=== PATIENT | male | born 1940 | race Caucasian/White ===

== ENCOUNTER 2023-10-08 10:43 | Inpatient (IN) | payer OTHER, BC, MEDICARE ==
[2023-10-08 12:03] LABS: HEMATOCRIT 42.9 % (35.4-49); HEMOGLOBIN 13.7 G/dL (11.7-16.9); MCH 28.1 pg (25.7-33.7); MEAN CELL VOLUME 87.8 fl (80-96); MEAN PLT VOLUME 10.9 fl (7.5-11.1); PLATELET COUNT 274.1 10^3/uL (134-434); RBC 4.89 10^6/uL (4.00-5.60); RDW 16.2 % (11.9-15.9); WHITE BLOOD COUNT 10.9 10^3/uL (4.0-10.8)
[2023-10-08 12:08] LABS: PLATELET ESTIMATE ADEQUATE
[2023-10-08 12:13] LABS: ALBUMIN 3.7 g/dl (3.4-5.0); ALK PHOS 73 U/L (45-117); ANION GAP 22 mmol/L (4-13); BILIRUBIN,TOTAL 0.5 mg/dl (0.2-1); CALCIUM 9.2 mg/dl (8.5-10.1); CHLORIDE 109 mmol/L (98-107); CO2 18 mmol/L (21-32); GLUCOSE,RANDOM 201 mg/dl (74-106); MAGNESIUM 2.2 mg/dL (1.8-2.4); POTASSIUM 5.1 mmol/L (3.5-5.1); SGOT/AST 16 U/L (15-37); SGPT/ALT 13 U/L (7-52); SODIUM 149 mmol/L (136-145)
[2023-10-08 12:15] VITALS: BMI 28.2
[2023-10-08 12:20] LABS: CREATININE 7.5 mg/dl (0.6-1.3)
[2023-10-08 15:45] LABS: ANION GAP 21 mmol/L (4-13); CALCIUM 8.7 mg/dl (8.5-10.1); CHLORIDE 111 mmol/L (98-107); CO2 17 mmol/L (21-32); CREATININE 7.2 mg/dl (0.6-1.3); GLUCOSE,RANDOM 209 mg/dl (74-106); POTASSIUM 5.2 mmol/L (3.5-5.1); SODIUM 149 mmol/L (136-145)
[2023-10-08] MEDS ORDERED: ACETAMINOPHEN 325 MG TABLET (FP) PO PRN (20:16)
[2023-10-09] MEDS ORDERED: MAGNESIUM HYDROX 2400MG/30ML ORAL SUSPENSION 30 ML CUP PO PRN (02:12)
[2023-10-09] MEDS ORDERED: ALBUTEROL SO4 HFA INHALER IH PRN (02:17)
[2023-10-09] MEDS ORDERED: guaiFENesin/D-METHORPHAN HB 10 ML UNIT-DOSE CUPS PO PRN (02:17)
[2023-10-09] MEDS: DEXTROSE 5%-0.45% SALINE 1,000 ML IV SCH ×2 (06:49→20:06)
[2023-10-09 09:48] LABS: ACTIVATED PTT 23.7 SECONDS (25.2-36.5); INR 1.1 (0.83-1.09); PROTHROMBIN TIME (PATIENT) 12.7 SEC (9.7-13.0)
[2023-10-09 09:58] LABS: ANION GAP 22 mmol/L (4-13); CALCIUM 8.6 mg/dl (8.5-10.1); CHLORIDE 114 mmol/L (98-107); CO2 16 mmol/L (21-32); CREATININE 6.6 mg/dl (0.6-1.3); GLUCOSE,RANDOM 327 mg/dl (74-106); POTASSIUM 5.1 mmol/L (3.5-5.1); SODIUM 152 mmol/L (136-145)
[2023-10-09 10:54] LABS: HEMATOCRIT 35.7 % (35.4-49); HEMOGLOBIN 11.5 GM/dL (11.7-16.9); MCHC 32.3 g/dl (32.0-35.9); MEAN CELL VOLUME 86.6 fl (80-96); MEAN PLT VOLUME 10.2 fl (7.5-11.1); PLATELET COUNT 278 10^3/uL (134-434); RBC 4.12 M/mm3 (4.00-5.60); RDW 16.9 % (11.9-15.9); WHITE BLOOD COUNT 8.3 K/mm3 (4.0-10.0)
[2023-10-09] MEDS: metoPROLOL SUCCINATE 25 MG TAB.SR.24H (FP) PO SCH (11:32)
[2023-10-09] MEDS: ZINC SULFATE 220 MG CAPSULE (FP) PO SCH (11:32)
[2023-10-09] MEDS: PANTOPRAZOLE 20 MG TABLET PO SCH (11:32)
[2023-10-09] MEDS: ASPIRIN COATED 81 MG TABLET.EC PO SCH (11:33)
[2023-10-09] MEDS: ASCORBIC ACID 500 MG TABLET (FP) PO SCH (11:33)
[2023-10-09 12:04] LABS: ANISOCYTOSIS 2+; MACROCYTOSIS 0
[2023-10-09] MEDS ORDERED: REMDESIVIR 200 MG in SODIUM CHLORIDE 250 ML IVPB ONE (14:00)
[2023-10-09] MEDS: INSULIN SLIDING SCALE (NOVOLOG) 1 VIAL SQ SCH ×3 (14:12→22:03)
[2023-10-09] MEDS ORDERED: TAMSULOSIN HCL 0.4 MG CAP PO ONE (15:02)
[2023-10-09] MEDS: QUEtiapine FUMARATE 25 MG TABLET PO SCH (22:03)
[2023-10-09] MEDS: INSULIN (LEVEMIR) 100 UNITS/ML UNITS SQ SCH (22:04)
[2023-10-10] MEDS: INSULIN SLIDING SCALE (NOVOLOG) 1 VIAL SQ SCH ×4 (06:46→21:52)
[2023-10-10 10:10] LABS: HEMATOCRIT 39.1 % (35.4-49); HEMOGLOBIN 12.9 G/dL (11.7-16.9); MEAN CELL VOLUME 87.8 fl (80-96); MEAN PLT VOLUME 9.7 fl (7.5-11.1); PLATELET COUNT 248.7 10^3/uL (134-434); RBC 4.45 10^6/uL (4.00-5.60); RDW 16.8 % (11.9-15.9); WHITE BLOOD COUNT 8.6 10^3/uL (4.0-10.8)
[2023-10-10 10:13] LABS: ALBUMIN 3.3 g/dl (3.4-5.0); ALK PHOS 61 U/L (45-117); ANION GAP 13 mmol/L (4-13); BILIRUBIN,TOTAL 0.3 mg/dl (0.2-1); CALCIUM 8.9 mg/dl (8.5-10.1); CHLORIDE 122 mmol/L (98-107); CO2 23 mmol/L (21-32); CREATININE 4.9 mg/dl (0.6-1.3); GLUCOSE,RANDOM 151 mg/dl (74-106); POTASSIUM 4.1 mmol/L (3.5-5.1); SGOT/AST 24 U/L (15-37); SGPT/ALT 13 U/L (7-52); SODIUM 158 mmol/L (136-145); TOT PROT 6.1 g/dl (6.4-8.2)
[2023-10-10] MEDS: ZINC SULFATE 220 MG CAPSULE (FP) PO SCH (10:29)
[2023-10-10] MEDS: ASCORBIC ACID 500 MG TABLET (FP) PO SCH (10:29)
[2023-10-10] MEDS: ASPIRIN COATED 81 MG TABLET.EC PO SCH (10:29)
[2023-10-10] MEDS: metoPROLOL SUCCINATE 25 MG TAB.SR.24H (FP) PO SCH (10:29)
[2023-10-10] MEDS: PANTOPRAZOLE 20 MG TABLET PO SCH (10:29)
[2023-10-10] MEDS ORDERED: SODIUM CHLORIDE 0.45% 1,000 ML IV SCH (12:30)
[2023-10-10 13:40] LABS: PLATELET ESTIMATE ADEQUATE
[2023-10-10] MEDS: REMDESIVIR 100 MG in SODIUM CHLORIDE 250 ML IVPB SCH (14:16)
[2023-10-10] MEDS: QUEtiapine FUMARATE 25 MG TABLET PO SCH (21:25)
[2023-10-10] MEDS: INSULIN (LEVEMIR) 100 UNITS/ML UNITS SQ SCH (21:25)
[2023-10-11] MEDS ORDERED: INSULIN (NOVOLOG) ASPART 100 UNITS/ML 10ML VIAL ONE (05:44)
[2023-10-11] MEDS: INSULIN SLIDING SCALE (NOVOLOG) 1 VIAL SQ SCH ×4 (06:24→22:34)
[2023-10-11 08:04] LABS: BASO % 0.5 % (0-2.0); EOS % 1.1 % (0-4.5); HEMATOCRIT 37.9 % (35.4-49); HEMOGLOBIN 12.2 GM/dL (11.7-16.9); LYMPH % 18.3 % (8-40); MCHC 32.2 g/dl (32.0-35.9); MEAN CELL VOLUME 86.9 fl (80-96); MEAN PLT VOLUME 9.7 fl (7.5-11.1); MONO % 14.8 % (3.8-10.2); NEUT % 65.3 % (42.8-82.8); PLATELET COUNT 257 10^3/uL (134-434); RBC 4.36 M/mm3 (4.00-5.60); RDW 16.4 % (11.9-15.9); WHITE BLOOD COUNT 9.4 K/mm3 (4.0-10.0)
[2023-10-11 08:55] LABS: ALBUMIN 2.3 g/dl (3.4-5.0); BILIRUBIN,TOTAL 0.4 mg/dL (0.2-1); BLOOD UREA NITROGEN 103.9 mg/dL (7-18); CALCIUM 8.4 mg/dL (8.5-10.1); CREATININE 3.4 mg/dL (0.55-1.3); POTASSIUM 4.2 mmol/L (3.5-5.1); TOT PROT 6.3 g/dl (6.4-8.2)
[2023-10-11] MEDS: ASCORBIC ACID 500 MG TABLET (FP) PO SCH (11:00)
[2023-10-11] MEDS: ZINC SULFATE 220 MG CAPSULE (FP) PO SCH (11:00)
[2023-10-11] MEDS: PANTOPRAZOLE 20 MG TABLET PO SCH (11:00)
[2023-10-11] MEDS: ASPIRIN COATED 81 MG TABLET.EC PO SCH (11:00)
[2023-10-11] MEDS: metoPROLOL SUCCINATE 25 MG TAB.SR.24H (FP) PO SCH (11:01)
[2023-10-11] MEDS ORDERED: DEXTROSE 5%-WATER - 1,000 ML IV SCH (12:15)
[2023-10-11] MEDS ORDERED: metoPROLOL SUCCINATE 25 MG TAB.SR.24H (FP) PO ONE (15:15)
[2023-10-11] MEDS: REMDESIVIR 100 MG in SODIUM CHLORIDE 250 ML IVPB SCH (17:23)
[2023-10-11] MEDS: QUEtiapine FUMARATE 25 MG TABLET PO SCH (22:29)
[2023-10-11] MEDS: INSULIN (LEVEMIR) 100 UNITS/ML UNITS SQ SCH (22:31)
[2023-10-12] MEDS: INSULIN SLIDING SCALE (NOVOLOG) 1 VIAL SQ SCH ×4 (06:46→21:30)
[2023-10-12 06:58] LABS: HEMATOCRIT 36.3 % (35.4-49); HEMOGLOBIN 11.7 GM/dL (11.7-16.9); MCH 28.1 pg (25.7-33.7); MCHC 32.3 g/dl (32.0-35.9); MEAN CELL VOLUME 87.1 fl (80-96); MEAN PLT VOLUME 9.9 fl (7.5-11.1); PLATELET COUNT 246 10^3/uL (134-434); RBC 4.17 M/mm3 (4.00-5.60); RDW 16.2 % (11.9-15.9); WHITE BLOOD COUNT 9.3 K/mm3 (4.0-10.0)
[2023-10-12 07:17] LABS: CALCIUM 8.1 mg/dL (8.5-10.1)
[2023-10-12 07:18] LABS: ALBUMIN 2.2 g/dl (3.4-5.0)
[2023-10-12 07:21] LABS: CREATININE 2.5 mg/dL (0.55-1.3)
[2023-10-12 07:22] LABS: TOT PROT 6.1 g/dl (6.4-8.2)
[2023-10-12 07:23] LABS: BILIRUBIN,TOTAL 0.5 mg/dL (0.2-1)
[2023-10-12 07:25] LABS: BLOOD UREA NITROGEN 74.3 mg/dL (7-18)
[2023-10-12] MEDS: metoPROLOL SUCCINATE 25 MG TAB.SR.24H (FP) PO SCH (10:06)
[2023-10-12] MEDS: PANTOPRAZOLE 20 MG TABLET PO SCH (10:06)
[2023-10-12] MEDS: ASCORBIC ACID 500 MG TABLET (FP) PO SCH (10:06)
[2023-10-12] MEDS: ZINC SULFATE 220 MG CAPSULE (FP) PO SCH (10:06)
[2023-10-12] MEDS: ASPIRIN COATED 81 MG TABLET.EC PO SCH (10:06)
[2023-10-12] MEDS ORDERED: metoPROLOL SUCCINATE 25 MG TAB.SR.24H (FP) PO ONE (14:55)
[2023-10-12] MEDS: REMDESIVIR 100 MG in SODIUM CHLORIDE 250 ML IVPB SCH (15:28)
[2023-10-12] MEDS: DEXTROSE 5%-WATER - 1,000 ML IV SCH (15:29)
[2023-10-12] MEDS ORDERED: INSULIN (NOVOLOG) ASPART 100 UNITS/ML 10ML VIAL ONE ×2 (17:32→21:25)
[2023-10-12] MEDS ORDERED: ACETAMINOPHEN 1000 MG/100 ML BAG IVPB ONE (18:01)
[2023-10-12] MEDS: INSULIN (LEVEMIR) 100 UNITS/ML UNITS SQ SCH (21:30)
[2023-10-12] MEDS: QUEtiapine FUMARATE 25 MG TABLET PO SCH (21:31)
[2023-10-13] MEDS: DEXTROSE 5%-WATER - 1,000 ML IV SCH ×2 (02:11→12:14)
[2023-10-13] MEDS: metoPROLOL SUCCINATE 25 MG TAB.SR.24H (FP) PO SCH ×2 (06:26→09:44)
[2023-10-13] MEDS: INSULIN SLIDING SCALE (NOVOLOG) 1 VIAL SQ SCH ×4 (06:27→21:58)
[2023-10-13 07:35] LABS: HEMATOCRIT 36.3 % (35.4-49); HEMOGLOBIN 11.6 GM/dL (11.7-16.9); MCH 28.2 pg (25.7-33.7); MEAN CELL VOLUME 88.1 fl (80-96); MEAN PLT VOLUME 10.1 fl (7.5-11.1); PLATELET COUNT 219 10^3/uL (134-434); RBC 4.12 M/mm3 (4.00-5.60); WHITE BLOOD COUNT 10.1 K/mm3 (4.0-10.0)
[2023-10-13 07:53] LABS: POTASSIUM 3.8 mmol/L (3.5-5.1)
[2023-10-13 08:02] LABS: ALBUMIN 2.2 g/dl (3.4-5.0); BLOOD UREA NITROGEN 56.4 mg/dL (7-18); CALCIUM 7.9 mg/dL (8.5-10.1)
[2023-10-13 08:05] LABS: CREATININE 2.2 mg/dL (0.55-1.3)
[2023-10-13 08:07] LABS: BILIRUBIN,TOTAL 0.5 mg/dL (0.2-1); TOT PROT 6.1 g/dl (6.4-8.2)
[2023-10-13] MEDS: ZINC SULFATE 220 MG CAPSULE (FP) PO SCH (09:43)
[2023-10-13] MEDS: PANTOPRAZOLE 20 MG TABLET PO SCH (09:43)
[2023-10-13] MEDS: ASCORBIC ACID 500 MG TABLET (FP) PO SCH (09:43)
[2023-10-13] MEDS: ASPIRIN COATED 81 MG TABLET.EC PO SCH (09:44)
[2023-10-13] MEDS: REMDESIVIR 100 MG in SODIUM CHLORIDE 250 ML IVPB SCH (13:31)
[2023-10-13] MEDS: QUEtiapine FUMARATE 25 MG TABLET PO SCH (21:53)
[2023-10-13] MEDS: INSULIN (LEVEMIR) 100 UNITS/ML UNITS SQ SCH (21:55)
[2023-10-14] MEDS: DEXTROSE 5%-WATER - 1,000 ML IV SCH ×2 (02:10→14:26)
[2023-10-14] MEDS: INSULIN SLIDING SCALE (NOVOLOG) 1 VIAL SQ SCH ×4 (05:59→22:40)
[2023-10-14 06:58] LABS: BASO % 0.7 % (0-2.0); EOS % 2.4 % (0-4.5); HEMATOCRIT 35.1 % (35.4-49); HEMOGLOBIN 11.1 GM/dL (11.7-16.9); MCH 27.6 pg (25.7-33.7); MCHC 31.5 g/dl (32.0-35.9); MEAN CELL VOLUME 87.5 fl (80-96); MONO % 7.5 % (3.8-10.2); NEUT % 62.4 % (42.8-82.8); PLATELET COUNT 207 10^3/uL (134-434); RBC 4.01 M/mm3 (4.00-5.60); RDW 16.3 % (11.9-15.9); WHITE BLOOD COUNT 11.4 K/mm3 (4.0-10.0)
[2023-10-14 07:20] LABS: POTASSIUM 3.6 mmol/L (3.5-5.1)
[2023-10-14 07:32] LABS: BLOOD UREA NITROGEN 44.5 mg/dL (7-18); CALCIUM 7.7 mg/dL (8.5-10.1)
[2023-10-14 07:35] LABS: CREATININE 1.7 mg/dL (0.55-1.3)
[2023-10-14 07:39] LABS: BILIRUBIN,TOTAL 0.4 mg/dL (0.2-1); TOT PROT 5.7 g/dl (6.4-8.2)
[2023-10-14] MEDS: ASCORBIC ACID 500 MG TABLET (FP) PO SCH (09:20)
[2023-10-14] MEDS: ASPIRIN COATED 81 MG TABLET.EC PO SCH (09:20)
[2023-10-14] MEDS: PANTOPRAZOLE 20 MG TABLET PO SCH (09:20)
[2023-10-14] MEDS: ZINC SULFATE 220 MG CAPSULE (FP) PO SCH (09:21)
[2023-10-14] MEDS: metoPROLOL SUCCINATE 25 MG TAB.SR.24H (FP) PO SCH (09:23)
[2023-10-14] MEDS: FINASTERIDE 5 MG TABLET (FP) PO SCH (10:31)
[2023-10-14] MEDS ORDERED: INSULIN (NOVOLOG) ASPART 100 UNITS/ML 10ML VIAL ONE (14:23)
[2023-10-14] MEDS: QUEtiapine FUMARATE 25 MG TABLET PO SCH (22:29)
[2023-10-14] MEDS: INSULIN (LEVEMIR) 100 UNITS/ML UNITS SQ SCH (22:29)
[2023-10-14] MEDS ORDERED: ACETAMINOPHEN 325 MG TABLET (FP) PO PRN (22:51)
[2023-10-14] MEDS ORDERED: INSULIN (NOVOLOG) ASPART 100 UNITS/ML 10ML VIAL SQ ONE ×2 (23:35)
[2023-10-15 00:05] LABS: EPI CELLS >36 /uL (0-25.1); HYALINE CASTS 26 /uL (0-3.1); URINE APPEARANCE TURBID; URINE BILIRUBIN NEGATIVE (NEGATIVE); URINE COLOR YELLOW; URINE GLUCOSE (UA) 3+ (NEGATIVE); URINE KETONE NEGATIVE (NEGATIVE); URINE LEUK ESTERASE NEGATIVE (NEGATIVE); URINE NITRITE NEGATIVE (NEGATIVE); URINE PROTEIN TRACE (NEGATIVE); URINE RBC 98 /uL (0-23.9); URINE UROBILINOGEN 0.2 mg/dL (0.2-1.0)
[2023-10-15] MEDS: INSULIN SLIDING SCALE (NOVOLOG) 1 VIAL SQ SCH ×4 (06:06→22:21)
[2023-10-15 07:22] LABS: BASO % 0.5 % (0-2.0); EOS % 2.7 % (0-4.5); HEMATOCRIT 33.3 % (35.4-49); HEMOGLOBIN 10.6 GM/dL (11.7-16.9); LYMPH % 29.5 % (8-40); MCHC 31.8 g/dl (32.0-35.9); MEAN CELL VOLUME 88.1 fl (80-96); MEAN PLT VOLUME 10.7 fl (7.5-11.1); MONO % 7.2 % (3.8-10.2); NEUT % 60.1 % (42.8-82.8); PLATELET COUNT 186 10^3/uL (134-434); RBC 3.78 M/mm3 (4.00-5.60); WHITE BLOOD COUNT 11.6 K/mm3 (4.0-10.0)
[2023-10-15 07:37] LABS: POTASSIUM 3.6 mmol/L (3.5-5.1)
[2023-10-15 07:39] LABS: BLOOD UREA NITROGEN 35.5 mg/dL (7-18); CALCIUM 7.4 mg/dL (8.5-10.1)
[2023-10-15 07:43] LABS: CREATININE 1.7 mg/dL (0.55-1.3)
[2023-10-15 07:44] LABS: BILIRUBIN,TOTAL 0.5 mg/dL (0.2-1); TOT PROT 5.4 g/dl (6.4-8.2)
[2023-10-15] MEDS: ASCORBIC ACID 500 MG TABLET (FP) PO SCH (09:41)
[2023-10-15] MEDS: FINASTERIDE 5 MG TABLET (FP) PO SCH (09:41)
[2023-10-15] MEDS: ZINC SULFATE 220 MG CAPSULE (FP) PO SCH (09:41)
[2023-10-15] MEDS: ASPIRIN COATED 81 MG TABLET.EC PO SCH (09:41)
[2023-10-15] MEDS: metoPROLOL SUCCINATE 25 MG TAB.SR.24H (FP) PO SCH (09:41)
[2023-10-15] MEDS: PANTOPRAZOLE 20 MG TABLET PO SCH (09:41)
[2023-10-15] MEDS: DEXTROSE 5%-WATER - 1,000 ML IV SCH (16:20)
[2023-10-15] MEDS: INSULIN (LEVEMIR) 100 UNITS/ML UNITS SQ SCH (22:21)
[2023-10-15] MEDS: QUEtiapine FUMARATE 25 MG TABLET PO SCH (22:22)
[2023-10-16] MEDS: INSULIN SLIDING SCALE (NOVOLOG) 1 VIAL SQ SCH ×4 (06:05→21:04)
[2023-10-16 09:12] LABS: BASO % 0.8 % (0-2.0); EOS % 2.3 % (0-4.5); HEMATOCRIT 33.9 % (35.4-49); HEMOGLOBIN 10.8 GM/dL (11.7-16.9); LYMPH % 26.6 % (8-40); MCH 27.7 pg (25.7-33.7); MCHC 31.8 g/dl (32.0-35.9); MEAN PLT VOLUME 11.5 fl (7.5-11.1); MONO % 6.8 % (3.8-10.2); NEUT % 63.5 % (42.8-82.8); PLATELET COUNT 189 10^3/uL (134-434); RDW 15.6 % (11.9-15.9); WHITE BLOOD COUNT 12.2 K/mm3 (4.0-10.0)
[2023-10-16 09:23] LABS: POTASSIUM 3.6 mmol/L (3.5-5.1)
[2023-10-16 09:33] LABS: BLOOD UREA NITROGEN 28.9 mg/dL (7-18); CALCIUM 7.8 mg/dL (8.5-10.1); MAGNESIUM 1.6 mg/dL (1.8-2.4)
[2023-10-16 09:36] LABS: CREATININE 1.5 mg/dL (0.55-1.3); PHOSPHOROUS 2.5 mg/dL (2.5-4.9)
[2023-10-16 09:38] LABS: BILIRUBIN,TOTAL 0.8 mg/dL (0.2-1)
[2023-10-16 09:40] LABS: TOT PROT 5.4 g/dl (6.4-8.2)
[2023-10-16] MEDS: metoPROLOL SUCCINATE 25 MG TAB.SR.24H (FP) PO SCH (10:35)
[2023-10-16] MEDS: ASCORBIC ACID 500 MG TABLET (FP) PO SCH (10:35)
[2023-10-16] MEDS: PANTOPRAZOLE 20 MG TABLET PO SCH (10:35)
[2023-10-16] MEDS: FINASTERIDE 5 MG TABLET (FP) PO SCH (10:35)
[2023-10-16] MEDS: ZINC SULFATE 220 MG CAPSULE (FP) PO SCH (10:35)
[2023-10-16] MEDS: ASPIRIN COATED 81 MG TABLET.EC PO SCH (10:35)
[2023-10-16] MEDS ORDERED: MAGNESIUM SULF 50% (8.12 MEQ/2 ML-1 GM VIAL) IVPB ONE (11:05)
[2023-10-16] MEDS: DEXTROSE 5%-WATER - 1,000 ML IV SCH (12:37)
[2023-10-16] MEDS ORDERED: MAGNESIUM 2GM/50ML STERILE WATER IVPB IVPB ONE (13:30)
[2023-10-16] MEDS: HEPARIN NA (PORCINE) 5,000 UNITS/ML 1ML VIAL SQ SCH ×2 (14:38→21:05)
[2023-10-16] MEDS: QUEtiapine FUMARATE 25 MG TABLET PO SCH (21:04)
[2023-10-16] MEDS: INSULIN (LEVEMIR) 100 UNITS/ML UNITS SQ SCH (21:05)
[2023-10-17] MEDS: INSULIN SLIDING SCALE (NOVOLOG) 1 VIAL SQ SCH ×2 (06:04→12:59)
[2023-10-17] MEDS: DEXTROSE 5%-WATER - 1,000 ML IV SCH ×2 (06:04→13:27)
[2023-10-17] MEDS: HEPARIN NA (PORCINE) 5,000 UNITS/ML 1ML VIAL SQ SCH ×2 (06:04→17:20)
[2023-10-17 08:51] LABS: BASO % 0.4 % (0-2.0); EOS % 1.9 % (0-4.5); HEMATOCRIT 34.1 % (35.4-49); HEMOGLOBIN 10.8 GM/dL (11.7-16.9); LYMPH % 26.5 % (8-40); MCH 27.1 pg (25.7-33.7); MCHC 31.6 g/dl (32.0-35.9); MEAN CELL VOLUME 85.7 fl (80-96); MONO % 7.1 % (3.8-10.2); NEUT % 64.1 % (42.8-82.8); PLATELET COUNT 208 10^3/uL (134-434); RBC 3.99 M/mm3 (4.00-5.60); RDW 15.8 % (11.9-15.9); WHITE BLOOD COUNT 12.1 K/mm3 (4.0-10.0)
[2023-10-17 09:11] LABS: POTASSIUM 3.3 mmol/L (3.5-5.1)
[2023-10-17 09:24] LABS: CALCIUM 7.8 mg/dL (8.5-10.1)
[2023-10-17 09:25] LABS: BLOOD UREA NITROGEN 24.4 mg/dL (7-18); MAGNESIUM 2.1 mg/dL (1.8-2.4)
[2023-10-17 09:28] LABS: CREATININE 1.3 mg/dL (0.55-1.3); PHOSPHOROUS 2.1 mg/dL (2.5-4.9)
[2023-10-17 09:29] LABS: BILIRUBIN,TOTAL 0.5 mg/dL (0.2-1); TOT PROT 5.1 g/dl (6.4-8.2)
[2023-10-17] MEDS ORDERED: POTASSIUM CHLORIDE ORAL LIQUID 20 MEQ/15 ML PO ONE (10:15)
[2023-10-17] MEDS ORDERED: NAPH,MB-DB/K PH,MBDB POWDER PACKET PO ONE (10:15)
[2023-10-17] MEDS: ZINC SULFATE 220 MG CAPSULE (FP) PO SCH (10:51)
[2023-10-17] MEDS: PANTOPRAZOLE 20 MG TABLET PO SCH (10:51)
[2023-10-17] MEDS: metoPROLOL SUCCINATE 25 MG TAB.SR.24H (FP) PO SCH (10:51)
[2023-10-17] MEDS: FINASTERIDE 5 MG TABLET (FP) PO SCH (10:51)
[2023-10-17] MEDS: ASPIRIN COATED 81 MG TABLET.EC PO SCH (10:51)
[2023-10-17] MEDS: ASCORBIC ACID 500 MG TABLET (FP) PO SCH (10:51)
[2023-10-17] MEDS ORDERED: SODIUM PHOSPHATE - 30 MM in SODIUM CHLORIDE 500 ML IVPB ONE (11:00)
[2023-10-17] MEDS ORDERED: CEFAZOLIN 500 MG in DEXTROSE 5%-WATER - 50 ML IVPB ONE (12:00)
[2023-10-17 14:04] VITALS: BP 147/62; PULSE 62; RESP 16; TEMP 97.8
[2023-10-17] MEDS ORDERED: POTASSIUM CHLORIDE 10 MEQ in DEXTROSE 5%-WATER - 1,000 ML IV SCH (15:00)
== END 2023-10-17 18:16 | DRG 682 ==
LOC: FER 10:43 → OBSVTOIN 12:59 → FM/S 12:59 → J4W 10-10 17:06 → J4S 10-16 00:45
PROVIDERS: ADMIT Internal Medicine; ATTEND Internal Medicine
PROC: XW033E5 Introduction of Remdesivir Anti-infective into Peripheral Vein, Percutaneous Approach, New Technology Group 5 (ICD-10-PCS; principal; 2023-10-09)
DX: N17.9 Acute kidney failure, unspecified (principal); U07.1 COVID-19; E87.0 Hyperosmolality and hypernatremia; N13.9 Obstructive and reflux uropathy, unspecified; I12.9 Hypertensive chronic kidney disease with stage 1 through stage 4 chronic kidney disease, or unspecified chronic kidney disease; E11.22 Type 2 diabetes mellitus with diabetic chronic kidney disease; F03.90 Unspecified dementia, unspecified severity, without behavioral disturbance, psychotic disturbance, mood disturbance, and anxiety; N18.9 Chronic kidney disease, unspecified; K21.9 Gastro-esophageal reflux disease without esophagitis; E78.5 Hyperlipidemia, unspecified; R13.10 Dysphagia, unspecified; N40.0 Benign prostatic hyperplasia without lower urinary tract symptoms; E86.0 Dehydration; E87.5 Hyperkalemia
CPT/HCPCS: 0241U-QW; 36415; 71045-TC-FY; 74176-TC; 76775-TC; 80048; 80053; 81003; 81015; 82728; 82962; 83605; 83615; 83735; 84100; 85025; 85027; 85610; 85730; 86140; 87040; 87086; 87635; 93005; 93010; 99285-25; J0248; J1644